=== PATIENT | female | born 1990 | race Caucasian/White ===

== ENCOUNTER 2016-04-13 07:54 | Emergency (ER) | payer BC ==
[~2016-04-13] VITALS: Ht 160 cm; Wt 68.2 kg
[2016-04-13 07:56] VITALS: BP 129/93; PULSE 83
[2016-04-13] MEDS ORDERED: MIRENA52 MG IY (08:00)
[2016-04-13] MEDS ORDERED: NORCO 325 MG-51 TAB PO (08:19)
[2016-04-13] MEDS ORDERED: MEDROL 4MG DOSPA4 MG PO (08:19)
[2016-04-13 09:18] VITALS: TEMP 98.2
== END 2016-04-13 09:17 | disposition home or self-care (01) ==
LOC: COL.ER 07:54
DX: M54.41 Lumbago with sciatica, right side (principal); M54.42 Lumbago with sciatica, left side
CPT/HCPCS: J1885; J2360